=== PATIENT | male | born 1990 | race African-American/Black ===

== ENCOUNTER 2017-06-24 11:17 | Emergency (ER) | payer MEDICAID, OTHER ==
[~2017-06-24] VITALS: Ht 188 cm; Wt 84.8 kg
[~2017-06-24 11:17] MED LIST: ABILIFY
[2017-06-24] MEDS ORDERED: TRAMADOL HCL 50 MG TABLET PO ONE (12:30)
[2017-06-24] MEDS ORDERED: CEFTRIAXONE 500 MG VIAL IM ONE (12:30)
[2017-06-24] MEDS ORDERED: AZITHROMYCIN 250 MG TABLET PO ONE (12:30)
[2017-06-24] MEDS ORDERED: AZITHROMYCIN 250 MG TABLET ONE (12:47)
[2017-06-24] MEDS ORDERED: TRAMADOL HCL 50 MG TABLET ONE (12:48)
[2017-06-24] MEDS ORDERED: CEFTRIAXONE 500 MG VIAL ONE (12:48)
[2017-06-24] MEDS ORDERED: LIDOCAINE HCL 1% 20 ML VIAL ONE (12:49)
--- NOTE | 2017-06-24 12:56 | NUR ---
Patient discharged to home in stable conditon. Written and verbal after care instructions given. Patient verbalizes understanding of instructions.
[2017-06-24 13:04] LABS: *BILIRUBIN,URIN NEGATIVE (NEGATIVE); *BLOOD, URINE NEGATIVE (NEGATIVE); *COLOR,URINE AMBER (YELLOW); *KETONES,URINE TRACE (NEGATIVE); *PROTEIN,URINE 1+ (NEGATIVE); *UROBILINOGEN,URINE 0.2 E.U./dl (NORMAL); LEUKOCYTE ESTERASE ,URINE NEGATIVE (NEGATIVE); NITRITE, URINE NEGATIVE (NEGATIVE); PH,URINE 5.5 (5.0-8.0); UGLUCOSE NEGATIVE (NEGATIVE)
[2017-06-24 13:22] LABS: *CLARITY,URINE HAZY (CLEAR)
[2017-06-24 13:24] LABS: BACTERIA,URINE FEW /HPF (NONE SEEN); MUCUS,URINE MANY /LPF (0-FEW); SQUAMOUS EPITHELIAL CELL,UR FEW /HPF (NONE SEEN); WBC,URINE 20-50 /HPF (0-3)
[2017-06-27 09:10] LABS: *GC NAA Negative (Negative)
[2017-06-27 11:12] LABS: *TRIC.VAG. NAA Negative (Negative)
== END 2017-06-24 12:57 | disposition home or self-care (01) ==
LOC: ER 11:17
DX: A64 Unspecified sexually transmitted disease (principal); S90.812A Abrasion, left foot, initial encounter; F32.9 Major depressive disorder, single episode, unspecified; S90.811A Abrasion, right foot, initial encounter; X58.XXXA Exposure to other specified factors, initial encounter; Y93.01 Activity, walking, marching and hiking; Y99.8 Other external cause status; Y92.830 Public park as the place of occurrence of the external cause
CPT/HCPCS: 81001; 87491; 96372; 99284; A4663; J0696; J3490; Q0144